=== PATIENT | male | born 1990 | race Hispanic/Latino ===

== ENCOUNTER 2023-02-18 22:11 | Emergency (ER) | payer SELFPAY ==
[2023-02-18] MEDS ORDERED: predniSONE 20 MG TAB ONE (22:26)
== END 2023-02-18 22:29 | disposition home or self-care (01) ==
LOC: ERS 22:11
DX: L23.7 Allergic contact dermatitis due to plants, except food (principal)
CPT/HCPCS: 99282; J7512